=== PATIENT | male | born 1980 | race American Indian/Alaskan Native ===

== ENCOUNTER 2022-01-19 12:06 | Inpatient (IN) | payer SELFPAY ==
[2022-01-19 12:51] LABS: Basophils % (Auto) 0.2 % (0.0-1.8); Eosinophils # (Auto) 0.2 K/mm3 (0.0-0.4); Eosinophils % (Auto) 1.8 % (0.0-4.3); Hematocrit 39.4 % (35.5-45.6); Hemoglobin 12.4 gm/dl (11.8-15.2); Lymphocytes % (Auto) 17.4 % (13.4-35.0); Mean Corpuscular HGB Conc 32 % (32-34); Monocytes # (Auto) 0.9 K/mm3 (0.0-0.8); Monocytes % (Auto) 7.7 % (0.0-7.3); Platelet Count 265 K/mm3 (140-440); Red Blood Count 5.66 M/mm3 (3.65-5.03); Red Cell Distribution Width 15.9 % (13.2-15.2)
[2022-01-19 12:52] LABS: Mean Corpuscular Volume 70 fl (84-94)
[2022-01-19 13:13] LABS: Bilirubin,Urine NEG (Negative); Blood,Urine MOD (Negative); Color,Urine Yellow (Yellow); Mucus,Urine 3+ /HPF; WBC,Urine > 182.0 /HPF (0.0-6.0)
[2022-01-19 13:15] LABS: Alanine Aminotransferase 10 units/L (7-56); Albumin 3.8 g/dL (3.9-5); BUN/Creatinine Ratio 14; Blood Urea Nitrogen 13 mg/dL (9-20); Calcium 8.4 mg/dL (8.4-10.2); Hemolysis Index 0
[2022-01-19] MEDS ORDERED: SODIUM CHLORIDE 0.9% 1000 ML 1,000 ML IV ONE (13:46)
[2022-01-19] MEDS ORDERED: MORPHINE 4 MG/1 ML INJ IV ONE (13:46)
[2022-01-19] MEDS ORDERED: ONDANSETRON 4 MG/2 ML INJ IV ONE (13:46)
[2022-01-19] MEDS ORDERED: cefTRIAXone/NS 1 GM/50 ML 1 GM/50 ML BAG IV ONE (13:46)
--- NOTE | 2022-01-19 15:03 | Cat Scan Report ---
CT ABDOMEN AND PELVIS WITH CONTRAST HISTORY: abd pain with n/v. COMPARISON: None. TECHNIQUE: CT images of the abdomen and pelvis were obtained following administration of intravenous contrast. All CT scans at this location are performed using CT dose reduction for ALARA by means of automated exposure control. CONTRAST: 100 ml of intravenous contrast administered. FINDINGS: Lungs/bones: Mild emphysematous changes are present in the lungs. Degenerative changes are present i n the spine with nothing acute. Abdomen/pelvis: The liver, gallbladder, spleen, pancreas, adrenals, left kidney, and proximal GI tra ct appear unremarkable. There is scarring in the lower to midpole the right kidney. There is colonic diverticulosis with abnormal wall thickening and inflammatory changes involving the mid sigmoid colon. There is an adjacent small abscess which abuts the dome of the bladder and also co mmunicates with the radius. The abscess measures roughly 3 cm in maximal dimension on image 158 but a ir and debris also seen tracking along the urachus in the midline ventrally on images 148-158. No pelvic free fluid. The appendix is normal. IMPRESSION: 1. Mid sigmoid diverticulitis with adjacent small abscess which communicates with the urachus. No sig nificant free fluid or free air in the abdomen. This appears to be contained. Signer Name: Wilmer Boothe MD Signed: 01/19/2022 2:58 PM Workstation Name: [id number]
[2022-01-19] MEDS ORDERED: PIPERACIL/TAZOBACTA 4.5/NS 100 4.5 GM/100 ML VIAL IV ONE (15:08)
--- NOTE | 2022-01-19 15:13 | Emergency Department Report ---
ED Abdominal Pain HPI - General Chief Complaint: Abdominal Pain Stated Complaint: STOMACH PAIN Time Seen by Provider: 01/19/22 13:17 Source: patient Mode of arrival: Ambulatory Limitations: No Limitations - History of Present Illness Initial Comments: This is a 41-year-old male nontoxic, well nourished in appearance, no acute signs of distress presents to the ED with c/o of nausea and vomiting and abdominal pain several days. Patient describes vomiting as food content and yellow gastric acid. Patient describes abdominal pain as cramping and aching with level of 8/10 worsen to the lower abdomen area. Patient denies any urinary symptoms. Patient denies any penile discharge. Patient denies chest pain, short of breath, fever, hemoptysis, blood in stool, chills, headache, stiff neck, numbness or tingling. Patient denies any diarrhea or constipation. Denies any blood in stool. Patient denies any recent travels. Patient stated allergies to shellfish. MD Complaint: abdominal pain -: days(s) Location: LLQ, RLQ Radiation: none Migration to: no migration Severity: mild Severity scale (0 -10): 8 Quality: cramping, aching Improves With: nothing Worsens With: nothing Associated Symptoms: nausea, vomiting. denies: diarrhea, fever, chills, constipation, dysuria, hematemesis, hematochezia, melena, hematuria, anorexia, syncope - Related Data Allergies Allergy/AdvReac Type Severity Reaction Status Date / Time shellfish derived Allergy Rash Verified 01/19/22 12:18 ED Review of Systems ROS: Stated complaint: STOMACH PAIN Other details as noted in HPI Comment: All other systems reviewed and negative Constitutional: denies: chills, fever Eyes: denies: eye pain, eye discharge, vision change ENT: denies: ear pain, throat pain Respiratory: denies: cough, shortness of breath, wheezing Cardiovascular: denies: chest pain, palpitations Endocrine: no symptoms reported Gastrointestinal: abdominal pain, nausea, vomiting. denies: diarrhea, constipation, hematemesis, melena, hematochezia Genitourinary: denies: urgency, dysuria Musculoskeletal: denies: back pain, joint swelling, arthralgia Skin: denies: rash, lesions Neurological: denies: headache, weakness, paresthesias Psychiatric: denies: anxiety, depression Hematological/Lymphatic: denies: easy bleeding, easy bruising ED Past Medical Hx - Past Medical History Previous Medical History?: Yes Additional medical history: Mass on right kidney - Surgical History Past Surgical History?: Yes Additional Surgical History: Right kidney mass ED Physical Exam - General Limitations: No Limitations General appearance: alert, in no apparent distress - Head Head exam: Present: atraumatic, normocephalic - Eye Eye exam: Present: normal appearance - Neck Neck exam: Present: normal inspection, full ROM. Absent: lymphadenopathy - Respiratory Respiratory exam: Present: normal lung sounds bilaterally. Absent: respiratory distress, wheezes, rales, rhonchi, stridor, chest wall tenderness, accessory muscle use, decreased breath sounds, prolonged expiratory - Cardiovascular Cardiovascular Exam: Present: regular rate, normal rhythm, normal heart sounds. Absent: bradycardia, tachycardia, irregular rhythm, systolic murmur, diastolic murmur, rubs, gallop - GI/Abdominal GI/Abdominal exam: Present: soft, tenderness (diffuse), normal bowel sounds. Absent: distended, guarding, rebound, rigid, diminished bowel sounds - Extremities Exam Extremities exam: Present: full ROM - Back Exam Back exam: Present: normal inspection, full ROM. Absent: tenderness, CVA tenderness (R), CVA tenderness (L), muscle spasm, paraspinal tenderness, vertebral tenderness, rash noted - Neurological Exam Neurological exam: Present: alert, oriented X3, normal gait - Psychiatric Psychiatric exam: Present: normal affect, normal mood - Skin Skin exam: Present: warm, dry, intact, normal color. Absent: rash ED Course Vital Signs 01/19/22 01/19/22 12:18 14:12 Temperature 98.6 F Pulse Rate 68 46 L Respiratory 20 18 Rate Blood Pressure 136/75 [Left] Blood Pressure 141/96 [Right] O2 Sat by Pulse 99 99 Oximetry - Reevaluation(s) Reevaluation #1: 01/19/22 15:12 Patient is speaking in full sentences with no signs of distress noted. - Consultations Consultation #1: 01/19/22 15:11 Patient has been consulted with Dr. Velásquez about patient history, physical exam, and labs/imaging results and agrees to ED plan of care and admission. Consultation #2: 01/19/22 15:[address] Robles (general surgery) and awaiting for call back. Consultation #3: 01/19/22 15:30 Patient has been consulted with Dr. Robles (general surgery) about patient history, physical exam, and labs/imaging results and agrees to the ED plan of care and patient to be admitted with hospitalist at this time. 01/19/22 15:55 Patient has been consulted with Dr. Rosa about patient history, physical exam, and labs/imaging results and accepts patient to services. ED Medical Decision Making - Lab Data Result diagrams: 01/19/22 12:36 01/19/22 12:36 Lab Results 01/19/22 01/19/22 01/19/22 Range/Units 12:36 12:36 12:36 WBC 11.7 H (4.5-11.0) K/mm3 RBC 5.66 H (3.65-5.03) M/mm3 Hgb 12.4 (11.8-15.2) gm/dl Hct 39.4 (35.5-45.6) % MCV 70 L (84-94) fl MCH 22 L (28-32) pg MCHC 32 (32-34) % RDW 15.9 H (13.2-15.2) % Plt Count 265 (140-440) K/mm3 Lymph % (Auto) 17.4 (13.4-35.0) % Marion % (Auto) 7.7 H (0.0-7.3) % Eos % (Auto) 1.8 (0.0-4.3) % Baso % (Auto) 0.2 (0.0-1.8) % Lymph # (Auto) 2.0 (1.2-5.4) K/mm3 Marion # (Auto) 0.9 H (0.0-0.8) K/mm3 Eos # (Auto) 0.2 (0.0-0.4) K/mm3 Baso # (Auto) 0.0 (0.0-0.1) K/mm3 Seg Neutrophils % 72.9 H (40.0-70.0) % Seg Neutrophils # 8.6 H (1.8-7.7) K/mm3 Sodium 142 (137-145) mmol/L Potassium 4.5 (3.6-5.0) mmol/L Chloride 107.4 H (98-107) mmol/L Carbon Dioxide 27 (22-30) mmol/L Anion Gap 12 mmol/L BUN 13 (9-20) mg/dL Creatinine 0.9 (0.8-1.3) mg/dL Estimated GFR > 60 ml/min BUN/Creatinine Ratio 14 % Glucose 91 (75-100) mg/dL Calcium 8.4 (8.4-10.2) mg/dL Total Bilirubin 0.20 (0.1-1.2) mg/dL AST 14 (5-40) units/L ALT 10 (7-56) units/L Alkaline Phosphatase 65 (35-129) units/L Total Protein 7.2 (6.3-8.2) g/dL Albumin 3.8 L (3.9-5) g/dL Albumin/Globulin Ratio 1.1 % Lipase 102 H (13-60) units/L Urine Color (Yellow) Urine Turbidity (Clear) Urine pH (5.0-7.0) Ur Specific Caldwell (1.003-1.030) Urine Protein (Negative) mg/dL Urine Glucose (UA) (Negative) mg/dL Urine Ketones (Negative) mg/dL Urine Blood (Negative) Urine Nitrite (Negative) Urine Bilirubin (Negative) Urine Urobilinogen (<2.0) mg/dL Ur Leukocyte Esterase (Negative) Urine WBC (Auto) (0.0-6.0) /HPF Urine RBC (Auto) (0.0-6.0) /HPF Urine Mucus /HPF Urine Yeast (Budding) /HPF 01/19/22 Range/Units Unknown WBC (4.5-11.0) K/mm3 RBC (3.65-5.03) M/mm3 Hgb (11.8-15.2) gm/dl Hct (35.5-45.6) % MCV (84-94) fl MCH (28-32) pg MCHC (32-34) % RDW (13.2-15.2) % Plt Count (140-440) K/mm3 Lymph % (Auto) (13.4-35.0) % Marion % (Auto) (0.0-7.3) % Eos % (Auto) (0.0-4.3) % Baso % (Auto) (0.0-1.8) % Lymph # (Auto) (1.2-5.4) K/mm3 Marion # (Auto) (0.0-0.8) K/mm3 Eos # (Auto) (0.0-0.4) K/mm3 Baso # (Auto) (0.0-0.1) K/mm3 Seg Neutrophils % (40.0-70.0) % Seg Neutrophils # (1.8-7.7) K/mm3 Sodium (137-145) mmol/L Potassium (3.6-5.0) mmol/L Chloride (98-107) mmol/L Carbon Dioxide (22-30) mmol/L Anion Gap mmol/L BUN (9-20) mg/dL Creatinine (0.8-1.3) mg/dL Estimated GFR ml/min BUN/Creatinine Ratio % Glucose (75-100) mg/dL Calcium (8.4-10.2) mg/dL Total Bilirubin (0.1-1.2) mg/dL AST (5-40) units/L ALT (7-56) units/L Alkaline Phosphatase (35-129) units/L Total Protein (6.3-8.2) g/dL Albumin (3.9-5) g/dL Albumin/Globulin Ratio % Lipase (13-60) units/L Urine Color Yellow (Yellow) Urine Turbidity Slightly-cloudy (Clear) Urine pH 5.0 (5.0-7.0) Ur Specific Caldwell 1.029 (1.003-1.030) Urine Protein 100 mg/dl (Negative) mg/dL Urine Glucose (UA) Neg (Negative) mg/dL Urine Ketones Neg (Negative) mg/dL Urine Blood Mod (Negative) Urine Nitrite Neg (Negative) Urine Bilirubin Neg (Negative) Urine Urobilinogen 4.0 (<2.0) mg/dL Ur Leukocyte Esterase Lg (Negative) Urine WBC (Auto) > 182.0 H (0.0-6.0) /HPF Urine RBC (Auto) 21.0 (0.0-6.0) /HPF Urine Mucus 3+ /HPF Urine Yeast (Budding) 1+ /HPF - Radiology Data [facility] [address] [place] [address] Cat Scan Report Signed Patient: CARLOS LUJAN MR#: [id number] : 1980 Acct:[id number] Age/Sex: 41 / M ADM Date: 01/19/22 Loc: ED Attending Dr: Ordering Physician: KARTIK STOLL NP Date of Service: 01/19/22 Procedure(s): CT abdomen pelvis w con Accession Number(s): [id number] cc: KARTIK STOLL NP CT ABDOMEN AND PELVIS WITH CONTRAST HISTORY: abd pain with n/v. COMPARISON: None. TECHNIQUE: CT images of the abdomen and pelvis were obtained following administration of intravenous contrast. All CT scans at this location are performed using CT dose reduction for ALARA by means of automated exposure control. CONTRAST: 100 ml of intravenous contrast administered. FINDINGS: Lungs/bones: Mild emphysematous changes are present in the lungs. Degenerative changes are present in the spine with nothing acute. Abdomen/pelvis: The liver, gallbladder, spleen, pancreas, adrenals, left kidney, and proximal GI tract appear unremarkable. There is scarring in the lower to midpole the right kidney. There is colonic diverticulosis with abnormal wall thickening and inflammatory changes involving the mid sigmoid colon. There is an adjacent small abscess which abuts the dome of the bladder and also communicates with the radius. The abscess measures roughly 3 cm in maximal dimension on image 158 but air and debris also seen tracking along the urachus in the midline ventrally on images 148- 158. No pelvic free fluid. The appendix is normal. IMPRESSION: 1. Mid sigmoid diverticulitis with adjacent small abscess which communicates with the urachus. No significant free fluid or free air in the abdomen. This appears to be contained. Signer Name: Wilmer Boothe MD Signed: 01/19/2022 2:58 PM Workstation Name: [id number] Transcribed By: KATIE Dictated By: Wilmer Boothe MD Electronically Authenticated By: Wilmer Boothe MD Signed Date/Time: 01/19/22 1458 DD/ 55 TD/TT: - Medical Decision Making 42-year-old male that presents with diverticulitis with abscess. Patient is stable and was examined by me. Patient received IV antibiotics. Patient is notified of the imaging results with no questions noted by the patient. Patient admitted with hospitalist at this time. At time of admission, the patient does not seem toxic or ill in appearance. No acute signs of distress noted. Patient agrees to admission treatment plan of care. No further questions noted by the patient. Critical care attestation.: If time is entered above; I have spent that time in minutes in the direct care of this critically ill patient, excluding procedure time. ED Disposition Clinical Impression: Diverticulitis, Intra-abdominal abscess Nausea & vomiting Qualifiers: Vomiting type: unspecified Qualified Code(s): R11.2 - Nausea with vomiting, unspecified Abdominal pain Qualifiers: Abdominal location: lower abdomen, unspecified Qualified Code(s): R10.30 - Lower abdominal pain, unspecified UTI (urinary tract infection) Qualifiers: Urinary tract infection type: acute cystitis Hematuria presence: with hematuria Qualified Code(s): N30.01 - Acute cystitis with hematuria Disposition: ADMITTED INPATIENT Is pt being admited?: Yes Condition: Stable Time of Disposition: 15:57
[2022-01-19] MEDS ORDERED: ACETAMINOPHEN 325 MG TAB PO PRN (19:54)
[2022-01-19] MEDS ORDERED: ONDANSETRON 4 MG/2 ML INJ IV PRN (19:54)
[2022-01-19] MEDS ORDERED: HYDROmorphone 0.5 MG/0.5 ML INJ IV PRN (19:54)
--- NOTE | 2022-01-19 20:04 | History and Physical Report ---
History of Present Illness Date of examination: 01/19/22 Date of admission: 01/19/2022 Chief complaint: Left lower quadrant and right lower quadrant pain for 2 to 3 days History of present illness: 41-year-old -Martiniquais male with past medical history of right kidney renal cell carcinoma and s/p right nephrectomy with history of diverticulitis comes in for right lower quadrant pain and left lower quadrant pain. Associated with nausea and vomiting. Abdominal pain for 3 days. Pain is about 10 on a scale of 1-10 and intermittent in nature. Food is an exacerbating factor. No recent travel. No fever or chills. - Past Medical History Previous Medical History?: Yes Additional medical history: Mass on right kidney - Surgical History Past Surgical History?: Yes Additional Surgical History: Right kidney mass family history Htn social history no smoking Review of Systems ROS: Stated complaint: STOMACH PAIN Other details as noted in HPI Comment: All other systems reviewed and negative Constitutional: denies: chills, fever Eyes: denies: eye pain, eye discharge, vision change ENT: denies: ear pain, throat pain Respiratory: denies: cough, shortness of breath, wheezing Cardiovascular: denies: chest pain, palpitations Endocrine: no symptoms reported Gastrointestinal: abdominal pain, nausea, vomiting. denies: diarrhea, cons tipation, hematemesis, melena, hematochezia Genitourinary: denies: urgency, dysuria Musculoskeletal: denies: back pain, joint swelling, arthralgia Skin: denies: rash, lesions Neurological: denies: headache, weakness, paresthesias Psychiatric: denies: anxiety, depression Hematological/Lymphatic: denies: easy bleeding, easy bruising Medications and Allergies Allergies Allergy/AdvReac Type Severity Reaction Status Date / Time shellfish derived Allergy Rash Verified 01/19/22 12:18 Exam - Constitutional Vitals: Temp Pulse Resp BP Pulse Ox 98.6 F 46 L 18 136/75 99 01/19/22 12:18 01/19/22 14:12 01/19/22 14:12 01/19/22 14:12 01/19/22 14:12 General appearance: Present: mild distress, well-nourished - EENT Eyes: Present: PERRL ENT: hearing intact, clear oral mucosa - Neck Neck: Present: supple, normal ROM - Respiratory Respiratory effort: normal Respiratory: bilateral: CTA - Cardiovascular Heart rate: 78 Rhythm: regular Heart Sounds: Present: S1 & S2. Absent: rub, click - Extremities Extremities: pulses symmetrical, No edema Peripheral Pulses: within normal limits - Abdominal General gastrointestinal: Present: soft, tender, non-distended, normal bowel sounds Localized gastrointestinal: tender: RLQ, LLQ, guarding: RLQ, LLQ Male genitourinary: Present: normal - Integumentary Integumentary: Present: clear, warm, dry - Musculoskeletal Musculoskeletal: gait normal, strength equal bilaterally - Psychiatric Psychiatric: appropriate mood/affect, intact judgment & insight - Neurologic Neurologic: CNII-XII intact, moves all extremities Results - Labs CBC & Chem 7: 01/20/22 04:38 01/20/22 04:38 Labs: Laboratory Last Values WBC 11.7 K/mm3 (4.5-11.0) H 01/19/22 12:36 RBC 5.66 M/mm3 (3.65-5.03) H 01/19/22 12:36 Hgb 12.4 gm/dl (11.8-15.2) 01/19/22 12:36 Hct 39.4 % (35.5-45.6) 01/19/22 12:36 MCV 70 fl (84-94) L 01/19/22 12:36 MCH 22 pg (28-32) L 01/19/22 12:36 MCHC 32 % (32-34) 01/19/22 12:36 RDW 15.9 % (13.2-15.2) H 01/19/22 12:36 Plt Count 265 K/mm3 (140-440) 01/19/22 12:36 Lymph % (Auto) 17.4 % (13.4-35.0) 01/19/22 12:36 Travis % (Auto) 7.7 % (0.0-7.3) H 01/19/22 12:36 Eos % (Auto) 1.8 % (0.0-4.3) 01/19/22 12:36 Baso % (Auto) 0.2 % (0.0-1.8) 01/19/22 12:36 Lymph # (Auto) 2.0 K/mm3 (1.2-5.4) 01/19/22 12:36 Travis # (Auto) 0.9 K/mm3 (0.0-0.8) H 01/19/22 12:36 Eos # (Auto) 0.2 K/mm3 (0.0-0.4) 01/19/22 12:36 Baso # (Auto) 0.0 K/mm3 (0.0-0.1) 01/19/22 12:36 Seg Neutrophils % 72.9 % (40.0-70.0) H 01/19/22 12:36 Seg Neutrophils # 8.6 K/mm3 (1.8-7.7) H 01/19/22 12:36 Sodium 142 mmol/L (137-145) 01/19/22 12:36 Potassium 4.5 mmol/L (3.6-5.0) 01/19/22 12:36 Chloride 107.4 mmol/L (98-107) H 01/19/22 12:36 Carbon Dioxide 27 mmol/L (22-30) 01/19/22 12:36 Anion Gap 12 mmol/L 01/19/22 12:36 BUN 13 mg/dL (9-20) 01/19/22 12:36 Creatinine 0.9 mg/dL (0.8-1.3) 01/19/22 12:36 Estimated GFR > 60 ml/min 01/19/22 12:36 BUN/Creatinine Ratio 14 % 01/19/22 12:36 Glucose 91 mg/dL (75-100) 01/19/22 12:36 Calcium 8.4 mg/dL (8.4-10.2) 01/19/22 12:36 Total Bilirubin 0.20 mg/dL (0.1-1.2) 01/19/22 12:36 AST 14 units/L (5-40) 01/19/22 12:36 ALT 10 units/L (7-56) 01/19/22 12:36 Alkaline Phosphatase 65 units/L (35-129) 01/19/22 12:36 Total Protein 7.2 g/dL (6.3-8.2) 01/19/22 12:36 Albumin 3.8 g/dL (3.9-5) L 01/19/22 12:36 Albumin/Globulin Ratio 1.1 % 01/19/22 12:36 Lipase 102 units/L (13-60) H 01/19/22 12:36 Urine Color Yellow (Yellow) 01/19/22 Unknown Urine Turbidity Slightly-cloudy (Clear) 01/19/22 Unknown Urine pH 5.0 (5.0-7.0) 01/19/22 Unknown Ur Specific Scott 1.029 (1.003-1.030) 01/19/22 Unknown Urine Protein 100 mg/dl mg/dL (Negative) 01/19/22 Unknown Urine Glucose (UA) Neg mg/dL (Negative) 01/19/22 Unknown Urine Ketones Neg mg/dL (Negative) 01/19/22 Unknown Urine Blood Mod (Negative) 01/19/22 Unknown Urine Nitrite Neg (Negative) 01/19/22 Unknown Urine Bilirubin Neg (Negative) 01/19/22 Unknown Urine Urobilinogen 4.0 mg/dL (<2.0) 01/19/22 Unknown Ur Leukocyte Esterase Lg (Negative) 01/19/22 Unknown Urine WBC (Auto) > 182.0 /HPF (0.0-6.0) H 01/19/22 Unknown Urine RBC (Auto) 21.0 /HPF (0.0-6.0) 01/19/22 Unknown Urine Mucus 3+ /HPF 01/19/22 Unknown Urine Yeast (Budding) 1+ /HPF 01/19/22 Unknown Short CBC 01/19/22 01/20/22 Range/Units 12:36 04:38 WBC 11.7 H 10.1 (4.5-11.0) K/mm3 Hgb 12.4 12.0 (11.8-15.2) gm/dl Hct 39.4 36.5 (35.5-45.6) % Plt Count 265 245 (140-440) K/mm3 BMP 01/19/22 01/20/22 12:36 04:38 Sodium 142 137 Potassium 4.5 3.8 Chloride 107.4 H 103.8 Carbon Dioxide 27 25 BUN 13 8 L Creatinine 0.9 0.8 Glucose 91 77 Calcium 8.4 8.5 Liver Function 01/19/22 01/20/22 Range/Units 12:36 04:38 Total Bilirubin 0.20 0.60 (0.1-1.2) mg/dL AST 14 12 (5-40) units/L ALT 10 10 (7-56) units/L Alkaline Phosphatase 65 56 (35-129) units/L Albumin 3.8 L 3.5 L (3.9-5) g/dL Urine 01/19/22 Range/Units Unknown Urine Color Yellow (Yellow) Urine pH 5.0 (5.0-7.0) Ur Specific Scott 1.029 (1.003-1.030) Urine Protein 100 mg/dl (Negative) mg/dL Urine Glucose (UA) Neg (Negative) mg/dL - Imaging and Cardiology CT scan - abdomen: report reviewed Imaging and Cardiology: Abdomen/pelvis CT Mild sigmoid diverticulitis with adjacent small extremities with clear liquids. No significant free fluid and free air in the abdomen this appears to be contained. Assessment and Plan Advance Directives: Yes (Full code) VTE prophylaxis?: Chemical Plan of care discussed with patient/family: Yes - Patient Problems (1) SIRS (systemic inflammatory response syndrome) Current Visit: Yes Status: Acute Plan to address problem: Elevated white count IV antibiotics for now (2) Acute diverticulitis Current Visit: Yes Status: Acute Plan to address problem: Involving the sigmoid with small contained abscess Can be treated conservatively IV antibiotics with Zosyn Surgery consult requested IV fluids Pain control N.p.o. (3) UTI (urinary tract infection) Current Visit: Yes Status: Acute Qualifiers: Urinary tract infection type: acute cystitis Plan to address problem: Patient is on Zosyn for diverticulitis Should cover for the urinary tract infection Check urine cultures (4) DVT prophylaxis Current Visit: Yes Status: Acute Plan to address problem: Heparin and GI prophylaxis (5) Advance care planning Current Visit: Yes Status: Acute Plan to address problem: Disease education conducted, care plan discussed, diagnosis discussed, prognosis discussed. Patient is full code. Patient acknowledges understanding and agreement with care plan. +30 minutes.
--- NOTE | 2022-01-19 20:39 | Consultation ---
History of Present Illness Consult date: 01/19/22 Reason for consult: abdominal pain - History of present illness History of present illness: 41 yo male with 3 day h/o BLQ pain associated with nausea and vomiting. + H/o diverticulitis. No prior colonoscopy. Past History Past Medical History: other (Right renal adenocarcinoma) Past Surgical History: Other (Right nephrectomy) Medications and Allergies Allergies Allergy/AdvReac Type Severity Reaction Status Date / Time shellfish derived Allergy Rash Verified 01/19/22 12:18 Home Medications Medication Instructions Recorded Confirmed Last Taken Type No Known Home Medications [No 01/20/22 01/20/22 Unknown History Reported Home Medications] Active Meds: Active Medications Acetaminophen (Acetaminophen 325 Mg Tab) 650 mg PO Q4H PRN PRN Reason: Pain MILD(1-3)/Fever >100.5/CHAN Famotidine (Famotidine 20 Mg/2 Ml Inj) 20 mg IV BID JIM Heparin Sodium (Porcine) (Heparin 5,000 Unit/1 Ml Vial) 5,000 unit SUB-Q Q12HR JIM Hydromorphone HCl (Hydromorphone 0.5 Mg/0.5 Ml Inj) 1 mg IV Q3H PRN PRN Reason: Pain , Severe (7-10) Sodium Chloride (Nacl 0.9% 1000 Ml) 1,000 mls @ 75 mls/hr IV DIRECT JIM Piperacillin Sod/Tazobactam Sod (Zosyn/Ns 4.5gm/100ml) 4.5 gm in 100 mls @ 200 mls/hr IV Q8HR JIM; Protocol Morphine Sulfate (Morphine 2 Mg/1 Ml Inj) 2 mg IV Q4H PRN PRN Reason: Pain, Moderate (4-6) Ondansetron HCl (Ondansetron 4 Mg/2 Ml Inj) 4 mg IV Q8H PRN PRN Reason: Nausea And Vomiting Sodium Chloride (Sodium Chloride 0.9% 10 Ml Flush Syringe) 10 ml IV BID JIM Sodium Chloride (Sodium Chloride 0.9% 10 Ml Flush Syringe) 10 ml IV PRN PRN PRN Reason: LINE FLUSH Review of Systems All systems: negative (nne) Exam Vital Signs Temp Pulse Resp BP Pulse Ox 98.6 F 68 20 141/96 99 01/19/22 12:18 01/19/22 12:18 01/19/22 12:18 01/19/22 12:18 01/19/22 12:18 - General physical appearance Positive: well developed, well nourished, no distress - Eyes Positive: PERRL, normal occular movement - ENT Positive: normal pinna, normal nares, normal mucosa, no hearing loss, no congestion - Neck Positive: no masses, no bruits, trachea midline, no venous distension - Respiratory Positive: normal expansion, normal respiratory effort, clear to auscultation - Cardiovascular Rhythm: regular Heart Sounds: Present: S1 & S2. Absent: rub, click - Extremities Extremities: no ischemia, pulses symmetrical, No edema - Breasts Breasts: normal, no mass, no skin changes - Abdomen Abdomen: Present: soft, tender (Mild TTP in the LLQ.), bowel sounds normal. Absent: distended, masses, rebound, guarding Hernia: none - Genitourinary Male Genitourinary: normal Female Genitourinary: normal - Integumentary no rash, no growths, no abnormal pigmentation - Neurologic Neurologic: alert and oriented to time, place and person, motor strength and sensation are grossly intact - Musculoskeletal normal gait, normal posture - Psychiatric Psychiatric: appropriate mood/affect, intact judgment & insight Results - Labs 01/20/22 04:38 01/20/22 04:38 Abnormal lab results 01/19/22 01/19/22 01/19/22 Range/Units 12:36 12:36 12:36 WBC 11.7 H (4.5-11.0) K/mm3 RBC 5.66 H (3.65-5.03) M/mm3 MCV 70 L (84-94) fl MCH 22 L (28-32) pg RDW 15.9 H (13.2-15.2) % [place] % (Auto) 7.7 H (0.0-7.3) % [place] # (Auto) 0.9 H (0.0-0.8) K/mm3 Seg Neutrophils % 72.9 H (40.0-70.0) % Seg Neutrophils # 8.6 H (1.8-7.7) K/mm3 Chloride 107.4 H (98-107) mmol/L Albumin 3.8 L (3.9-5) g/dL Lipase 102 H (13-60) units/L Urine WBC (Auto) (0.0-6.0) /HPF 01/19/22 Range/Units Unknown WBC (4.5-11.0) K/mm3 RBC (3.65-5.03) M/mm3 MCV (84-94) fl MCH (28-32) pg RDW (13.2-15.2) % [place] % (Auto) (0.0-7.3) % [place] # (Auto) (0.0-0.8) K/mm3 Seg Neutrophils % (40.0-70.0) % Seg Neutrophils # (1.8-7.7) K/mm3 Chloride (98-107) mmol/L Albumin (3.9-5) g/dL Lipase (13-60) units/L Urine WBC (Auto) > 182.0 H (0.0-6.0) /HPF Diabetes panel 01/19/22 Range/Units 12:36 Sodium 142 (137-145) mmol/L Potassium 4.5 (3.6-5.0) mmol/L Chloride 107.4 H (98-107) mmol/L Carbon Dioxide 27 (22-30) mmol/L BUN 13 (9-20) mg/dL Creatinine 0.9 (0.8-1.3) mg/dL Glucose 91 (75-100) mg/dL Calcium 8.4 (8.4-10.2) mg/dL AST 14 (5-40) units/L ALT 10 (7-56) units/L Alkaline Phosphatase 65 (35-129) units/L Total Protein 7.2 (6.3-8.2) g/dL Albumin 3.8 L (3.9-5) g/dL Calcium panel 01/19/22 Range/Units 12:36 Calcium 8.4 (8.4-10.2) mg/dL Albumin 3.8 L (3.9-5) g/dL Pituitary panel 01/19/22 Range/Units 12:36 Sodium 142 (137-145) mmol/L Potassium 4.5 (3.6-5.0) mmol/L Chloride 107.4 H (98-107) mmol/L Carbon Dioxide 27 (22-30) mmol/L BUN 13 (9-20) mg/dL Creatinine 0.9 (0.8-1.3) mg/dL Glucose 91 (75-100) mg/dL Calcium 8.4 (8.4-10.2) mg/dL Adrenal panel 01/19/22 Range/Units 12:36 Sodium 142 (137-145) mmol/L Potassium 4.5 (3.6-5.0) mmol/L Chloride 107.4 H (98-107) mmol/L Carbon Dioxide 27 (22-30) mmol/L BUN 13 (9-20) mg/dL Creatinine 0.9 (0.8-1.3) mg/dL Glucose 91 (75-100) mg/dL Calcium 8.4 (8.4-10.2) mg/dL Total Bilirubin 0.20 (0.1-1.2) mg/dL AST 14 (5-40) units/L ALT 10 (7-56) units/L Alkaline Phosphatase 65 (35-129) units/L Total Protein 7.2 (6.3-8.2) g/dL Albumin 3.8 L (3.9-5) g/dL - Imaging CT scan - abdomen: report reviewed CT scan - pelvis: report reviewed Assessment and Plan - Patient Problems (1) Diverticulitis Current Visit: Yes Status: Acute Plan to address problem: 1) NPO 2) IV Zosyn 3) Consult IR for possible drainage of abscess
[2022-01-19] MEDS: PIPERACIL/TAZOBACTA 4.5/NS 100 4.5 GM/100 ML VIAL IV SCH (22:05)
[2022-01-19] MEDS: SODIUM CHLORIDE 0.9% 1000 ML 1,000 ML IV SCH (22:05)
[2022-01-19] MEDS: HEPARIN 5,000 UNIT/1 ML VIAL SUB-Q SCH (22:08)
[2022-01-19] MEDS: FAMOTIDINE 20 MG/2 ML INJ IV SCH (22:10)
[2022-01-19] MEDS: MORPHINE 2 MG/1 ML INJ IV PRN (22:11)
[2022-01-20] MEDS: MORPHINE 2 MG/1 ML INJ IV PRN ×2 (05:00→20:54)
[2022-01-20] MEDS: PIPERACIL/TAZOBACTA 4.5/NS 100 4.5 GM/100 ML VIAL IV SCH ×4 (05:30→21:07)
[2022-01-20 05:39] LABS: Basophils % (Auto) 0.3 % (0.0-1.8); Eosinophils # (Auto) 0.2 K/mm3 (0.0-0.4); Eosinophils % (Auto) 2.2 % (0.0-4.3); Hematocrit 36.5 % (35.5-45.6); Lymphocytes # (Auto) 1.8 K/mm3 (1.2-5.4); Mean Corpuscular HGB Conc 33 % (32-34); Monocytes # (Auto) 0.8 K/mm3 (0.0-0.8); Monocytes % (Auto) 8.1 % (0.0-7.3); Platelet Count 245 K/mm3 (140-440); Red Blood Count 5.24 M/mm3 (3.65-5.03); Red Cell Distribution Width 15.7 % (13.2-15.2)
[2022-01-20 05:46] LABS: Mean Corpuscular Volume 70 fl (84-94)
[2022-01-20 06:07] LABS: Alanine Aminotransferase 10 units/L (7-56); Albumin 3.5 g/dL (3.9-5); BUN/Creatinine Ratio 10; Blood Urea Nitrogen 8 mg/dL (9-20); Calcium 8.5 mg/dL (8.4-10.2); Hemolysis Index 3
--- NOTE | 2022-01-20 07:53 | Progress Note ---
Assessment and Plan Assessment and plan: History of present illness: 41-year-old -[place]ian male with past medical history of right kidney renal cell carcinoma and s/p right nephrectomy with history of diverticulitis comes in for right lower quadrant pain and left lower quadrant pain. Associated with nausea and vomiting. Abdominal pain for 3 days. Pain is about 10 on a scale of 1-10 and intermittent in nature. Food is an exacerbating factor. No recent travel. No fever or chills. Assessment and Plan: #Sepsis POA -Secondary to diverticulitis/UTI, leukocytosis (11.7K) noted,tachypneic - management of diverticulitis as below. #Acute diverticulitis -Abdomen/pelvis CT: Mild sigmoid diverticulitis with adjacent small extremities with clear liquids. No significant free fluid and free air in the abdomen this appears to be contained. -Involving the sigmoid with small contained abscess -Can be treated conservatively for now, if patient worsens, may need surgical drainage -IV antibiotics with Zosyn -Surgery consult requested, will await input -IV fluids -Pain control -N.p.o. #Urinary tract infection -leukocytosis (11.7K), Urine WBC 182. -zosyn IV for coverage. -follow culture data #History of RCC s/p rt nephrectomy - noted # Obesity - BMI 30 - Counseled patient on the importance of weight loss, incorporating exercise, and dietary changes (lean meats, fresh fruits and vegetables, and water intake). Patient expresses understanding. - Time: +15 min #Advance care planning Disease education conducted, care plan discussed, diagnoses discussed, prognosis discussed, patient is full code, patient acknowledges understanding and agree with care plan, discussed about patient clinical course and answered all questions to satisfaction. +30 minutes. +30 minutes. Dispo: Conservative management at this time given mild symptoms and CT findings as well as response to fluid/abx. Would recommend continued NPO, fluid/abx for next 24hrs and subsequent re-eval of symptomology. If no improvement noted, may require surgical/IR intervention. Will follow for Gen surgery input. History Interval history: Patient seen and evaluated at bedside encounter. States that his left lower quadrant is only mildly tender citing a pain scale of 3 out of 10. He has not had a bowel movement since yesterday. Of note patient states that over the last few days prior to admission he has been having intermittent dysuria and stated that he may have noted blood in his urine. I discussed the care plan with him today as well as his ultimate disposition. Hospitalist Physical - Physical exam Narrative exam: Physical Exam: VITAL SIGNS: Reviewed. GENERAL: The patient appears normally developed, Vital signs as documented. HEAD: No signs of head trauma. EYES: Pupils are equal. Extraocular motions intact. EARS: Hearing grossly intact. MOUTH: Oropharynx is normal. NECK: No adenopathy, no JVD. CHEST: Chest with clear breath sounds bilaterally. No wheezes, rales, or rhonchi. CARDIAC: Regular rate and rhythm. S1 and S2, without murmurs, gallops, or rubs. VASCULAR: No Edema. Peripheral pulses normal and equal in all extremities. ABDOMEN: Mild left lower quadrant tenderness to palpation MUSCULOSKELETAL: Good range of motion of all major joints. Extremities without clubbing, cyanosis or edema. NEUROLOGIC EXAM: Alert and oriented x 4. no focal sensory or strength deficits. PSYCHIATRIC: Mood normal. SKIN: detail exam as documented in skin assessment - Constitutional Vitals: Temp Pulse Resp BP Pulse Ox 98.4 F 47 L 16 140/84 98 01/19/22 22:13 01/19/22 22:13 01/20/22 00:11 01/19/22 22:13 01/20/22 00:11 General appearance: Present: mild distress, well-nourished Results - Labs CBC & Chem 7: 01/20/22 04:38 01/20/22 04:38 Labs: Laboratory Last Values WBC 10.1 K/mm3 (4.5-11.0) 01/20/22 04:38 RBC 5.24 M/mm3 (3.65-5.03) H 01/20/22 04:38 Hgb 12.0 gm/dl (11.8-15.2) 01/20/22 04:38 Hct 36.5 % (35.5-45.6) 01/20/22 04:38 MCV 70 fl (84-94) L 01/20/22 04:38 MCH 23 pg (28-32) L 01/20/22 04:38 MCHC 33 % (32-34) 01/20/22 04:38 RDW 15.7 % (13.2-15.2) H 01/20/22 04:38 Plt Count 245 K/mm3 (140-440) 01/20/22 04:38 Lymph % (Auto) 18.0 % (13.4-35.0) 01/20/22 04:38 [place] % (Auto) 8.1 % (0.0-7.3) H 01/20/22 04:38 Eos % (Auto) 2.2 % (0.0-4.3) 01/20/22 04:38 Baso % (Auto) 0.3 % (0.0-1.8) 01/20/22 04:38 Lymph # (Auto) 1.8 K/mm3 (1.2-5.4) 01/20/22 04:38 [place] # (Auto) 0.8 K/mm3 (0.0-0.8) 01/20/22 04:38 Eos # (Auto) 0.2 K/mm3 (0.0-0.4) 01/20/22 04:38 Baso # (Auto) 0.0 K/mm3 (0.0-0.1) 01/20/22 04:38 Seg Neutrophils % 71.4 % (40.0-70.0) H 01/20/22 04:38 Seg Neutrophils # 7.2 K/mm3 (1.8-7.7) 01/20/22 04:38 Sodium 137 mmol/L (137-145) 01/20/22 04:38 Potassium 3.8 mmol/L (3.6-5.0) 01/20/22 04:38 Chloride 103.8 mmol/L (98-107) 01/20/22 04:38 Carbon Dioxide 25 mmol/L (22-30) 01/20/22 04:38 Anion Gap 12 mmol/L 01/20/22 04:38 BUN 8 mg/dL (9-20) L 01/20/22 04:38 Creatinine 0.8 mg/dL (0.8-1.3) 01/20/22 04:38 Estimated GFR > 60 ml/min 01/20/22 04:38 BUN/Creatinine Ratio 10 % 01/20/22 04:38 Glucose 77 mg/dL (75-100) 01/20/22 04:38 Calcium 8.5 mg/dL (8.4-10.2) 01/20/22 04:38 Total Bilirubin 0.60 mg/dL (0.1-1.2) 01/20/22 04:38 AST 12 units/L (5-40) 01/20/22 04:38 ALT 10 units/L (7-56) 01/20/22 04:38 Alkaline Phosphatase 56 units/L (35-129) 01/20/22 04:38 Total Protein 6.8 g/dL (6.3-8.2) 01/20/22 04:38 Albumin 3.5 g/dL (3.9-5) L 01/20/22 04:38 Albumin/Globulin Ratio 1.1 % 01/20/22 04:38 Lipase 102 units/L (13-60) H 01/19/22 12:36 Urine Color Yellow (Yellow) 01/19/22 Unknown Urine Turbidity Slightly-cloudy (Clear) 01/19/22 Unknown Urine pH 5.0 (5.0-7.0) 01/19/22 Unknown Ur Specific [place] 1.029 (1.003-1.030) 01/19/22 Unknown Urine Protein 100 mg/dl mg/dL (Negative) 01/19/22 Unknown Urine Glucose (UA) Neg mg/dL (Negative) 01/19/22 Unknown Urine Ketones Neg mg/dL (Negative) 01/19/22 Unknown Urine Blood Mod (Negative) 01/19/22 Unknown Urine Nitrite Neg (Negative) 01/19/22 Unknown Urine Bilirubin Neg (Negative) 01/19/22 Unknown Urine Urobilinogen 4.0 mg/dL (<2.0) 01/19/22 Unknown Ur Leukocyte Esterase Lg (Negative) 01/19/22 Unknown Urine WBC (Auto) > 182.0 /HPF (0.0-6.0) H 01/19/22 Unknown Urine RBC (Auto) 21.0 /HPF (0.0-6.0) 01/19/22 Unknown Urine Mucus 3+ /HPF 01/19/22 Unknown Urine Yeast (Budding) 1+ /HPF 01/19/22 Unknown Bonilla/IV: Voiding Method Toilet Active Medications - Current Medications Current Medications: Generic Name Dose Route Start Last Admin Trade Name Freq PRN Reason Stop Dose Admin Acetaminophen 650 mg 01/19/22 19:54 Acetaminophen 325 Mg Tab PO Q4H PRN Pain MILD(1-3)/Fever >100.5/CHAN Famotidine 20 mg 01/19/22 22:00 01/19/22 22:10 Famotidine 20 Mg/2 Ml Inj IV 20 mg BID JIM Administration Heparin Sodium (Porcine) 5,000 unit 01/19/22 22:00 01/19/22 22:08 Heparin 5,000 Unit/1 Ml Vial SUB-Q 5,000 unit Q12HR JIM Administration Hydromorphone HCl 1 mg 01/19/22 19:54 Hydromorphone 0.5 Mg/0.5 Ml Inj IV Q3H PRN Pain , Severe (7-10) Sodium Chloride 1,000 mls @ 75 mls/hr 01/19/22 20:00 01/19/22 22:05 Nacl 0.9% 1000 Ml IV 75 mls/hr DIRECT JIM Administration Piperacillin Sod/Tazobactam Sod 4.5 gm in 100 mls @ 200 mls/hr 01/19/22 22:00 01/19/22 22:05 Zosyn/Ns 4.5gm/100ml IV 200 mls/hr Q8HR JIM Administration Protocol Morphine Sulfate 2 mg 01/19/22 19:54 01/20/22 05:00 Morphine 2 Mg/1 Ml Inj IV 2 mg Q4H PRN Administration Pain, Moderate (4-6) Ondansetron HCl 4 mg 01/19/22 19:54 01/19/22 22:10 Ondansetron 4 Mg/2 Ml Inj IV 4 mg Q8H PRN Administration Nausea And Vomiting Sodium Chloride 10 ml 01/19/22 22:00 01/19/22 22:11 Sodium Chloride 0.9% 10 Ml Flush Syringe IV 10 ml BID JIM Administration Sodium Chloride 10 ml 01/19/22 19:54 Sodium Chloride 0.9% 10 Ml Flush Syringe IV PRN PRN LINE FLUSH
[2022-01-20] MEDS: FAMOTIDINE 20 MG/2 ML INJ IV SCH ×3 (09:09→21:06)
[2022-01-20] MEDS: HEPARIN 5,000 UNIT/1 ML VIAL SUB-Q SCH ×3 (09:10→21:06)
[2022-01-20] MEDS: SODIUM CHLORIDE 0.9% 1000 ML 1,000 ML IV SCH (09:13)
--- NOTE | 2022-01-20 16:02 | Progress Note ---
Assessment and Plan - Patient Problems (1) Diverticulitis Current Visit: Yes Status: Acute Plan to address problem: 1) Continue IV Zosyn 2) CLD 3) Consult IR re possible percutaneous drainage. Subjective Date of service: 01/20/22 Patient Reports: Positive: no new complaints, feels better, pain is less Objective Vital Signs - 12hr 01/20/22 01/20/22 08:29 11:52 Temperature 98.2 F Pulse Rate 41 L Respiratory 18 18 Rate Blood Pressure 132/79 O2 Sat by Pulse 98 100 Oximetry - Abdomen PM_46_EXABD1 4, PM_46_EXABD1 6, PM_46_EXABD1 8 Hernia: none - Labs 01/20/22 04:38 01/20/22 04:38 Diabetes panel 01/20/22 Range/Units 04:38 Sodium 137 (137-145) mmol/L Potassium 3.8 (3.6-5.0) mmol/L Chloride 103.8 (98-107) mmol/L Carbon Dioxide 25 (22-30) mmol/L BUN 8 L (9-20) mg/dL Creatinine 0.8 (0.8-1.3) mg/dL Glucose 77 (75-100) mg/dL Calcium 8.5 (8.4-10.2) mg/dL AST 12 (5-40) units/L ALT 10 (7-56) units/L Alkaline Phosphatase 56 (35-129) units/L Total Protein 6.8 (6.3-8.2) g/dL Albumin 3.5 L (3.9-5) g/dL Calcium panel 01/20/22 Range/Units 04:38 Calcium 8.5 (8.4-10.2) mg/dL Albumin 3.5 L (3.9-5) g/dL Pituitary panel 01/20/22 Range/Units 04:38 Sodium 137 (137-145) mmol/L Potassium 3.8 (3.6-5.0) mmol/L Chloride 103.8 (98-107) mmol/L Carbon Dioxide 25 (22-30) mmol/L BUN 8 L (9-20) mg/dL Creatinine 0.8 (0.8-1.3) mg/dL Glucose 77 (75-100) mg/dL Calcium 8.5 (8.4-10.2) mg/dL Adrenal panel 01/20/22 Range/Units 04:38 Sodium 137 (137-145) mmol/L Potassium 3.8 (3.6-5.0) mmol/L Chloride 103.8 (98-107) mmol/L Carbon Dioxide 25 (22-30) mmol/L BUN 8 L (9-20) mg/dL Creatinine 0.8 (0.8-1.3) mg/dL Glucose 77 (75-100) mg/dL Calcium 8.5 (8.4-10.2) mg/dL Total Bilirubin 0.60 (0.1-1.2) mg/dL AST 12 (5-40) units/L ALT 10 (7-56) units/L Alkaline Phosphatase 56 (35-129) units/L Total Protein 6.8 (6.3-8.2) g/dL Albumin 3.5 L (3.9-5) g/dL
--- NOTE | 2022-01-20 16:12 | Event Note ---
Date: 01/20/22 41-year-old male with diverticular abscess with patent urachus. There is gas in the bladder. The diverticular abscess is on top of the bladder dome abutting the urachus. Gas in the bladder raises the possibility of colovesicular fistula given the sigmoid diverticular abscess Anatomy is unclear given this situation. Recommend Bonilla catheter placement with repeat CT scan tomorrow morning. Made n.p.o. in case patient requires drainage tomorrow.
[2022-01-21] MEDS: SODIUM CHLORIDE 0.9% 1000 ML 1,000 ML IV SCH (01:26)
[2022-01-21] MEDS: PIPERACIL/TAZOBACTA 4.5/NS 100 4.5 GM/100 ML VIAL IV SCH ×2 (05:20→14:21)
[2022-01-21 06:03] LABS: Basophils % (Auto) 0.4 % (0.0-1.8); Eosinophils # (Auto) 0.2 K/mm3 (0.0-0.4); Eosinophils % (Auto) 2.2 % (0.0-4.3); Hematocrit 38.8 % (35.5-45.6); Hemoglobin 12.4 gm/dl (11.8-15.2); Lymphocytes # (Auto) 1.9 K/mm3 (1.2-5.4); Lymphocytes % (Auto) 25.4 % (13.4-35.0); Mean Corpuscular HGB Conc 32 % (32-34); Monocytes # (Auto) 0.6 K/mm3 (0.0-0.8); Monocytes % (Auto) 7.9 % (0.0-7.3); Platelet Count 250 K/mm3 (140-440); Red Cell Distribution Width 15.7 % (13.2-15.2)
[2022-01-21 06:05] LABS: Mean Corpuscular Volume 69 fl (84-94)
[2022-01-21 06:21] LABS: BUN/Creatinine Ratio 10; Blood Urea Nitrogen 9 mg/dL (9-20); Calcium 8.6 mg/dL (8.4-10.2); Hemolysis Index 3
[2022-01-21] MEDS: FAMOTIDINE 20 MG/2 ML INJ IV SCH (09:38)
--- NOTE | 2022-01-21 11:12 | Cat Scan Report ---
CT ABDOMEN AND PELVIS WITH CONTRAST HISTORY: diverticulitis s/p metcalf, reassess abscess. COMPARISON: 01/19/2022 TECHNIQUE: Helical CT images of the abdomen and pelvis were obtained following administration of intr avenous contrast. Sagittal and coronal reformatted images were reviewed. All CT scans at this [facility] are performed using CT dose reduction for ALARA by means of automated exposure control. CONTRAST: Omnipaque 300 100 ml of intravenous contrast administered. FINDINGS: Abdomen/pelvis: Mild improvement is demonstrated in the previously described peridiverticular absces s just above the dome of the bladder. The collection demonstrates decreased internal fluid and has de creased from 3 cm to 2 cm in maximum dimension. Trace gas along the urachus is again noted and unchan ged. No new abscess is appreciated. Mild inflammatory changes in the sigmoid region have improved as well. The liver, biliary system, pancreas, spleen, adrenal glands, kidneys, vascular structures and bladder remain unremarkable. Lungs/bones: The lung bases remain clear. No acute bony abnormality. IMPRESSION: Mild improvement in the sigmoid diverticulitis and small peridiverticular abscess since 01/19/2022 as d escribed. Signer Name: Kostas Watson Jr, MD Signed: 01/21/2022 11:08 AM Workstation Name: [id number]
--- NOTE | 2022-01-21 11:41 | Progress Note ---
Assessment and Plan Assessment and plan: 41-year-old -[place]ian male with past medical history of right kidney renal cell carcinoma and s/p right nephrectomy with history of diverticulitis comes in for right lower quadrant pain and left lower quadrant pain. Associated with nausea and vomiting. Abdominal pain for 3 days. Pain is about 10 on a scale of 1-10 and intermittent in nature. Food is an exacerbating factor. No recent travel. No fever or chills. Sepsis POA -Secondary to diverticulitis/UTI, leukocytosis (11.7K) noted,tachypneic - management of diverticulitis as below. Acute diverticulitis -Abdomen/pelvis CT: Mild sigmoid diverticulitis with adjacent small extremities with clear liquids. No significant free fluid and free air in the abdomen this appears to be contained. -Involving the sigmoid with small contained abscess -Can be treated conservatively for now, if patient worsens, may need surgical drainage -IV antibiotics with Zosyn -Surgery consult requested, will await input -IV fluids -Pain control -N.p.o. Urinary tract infection -leukocytosis (11.7K), Urine WBC 182. -zosyn IV for coverage. -follow culture data History of RCC s/p rt nephrectomy - noted Obesity - BMI 30 - Counseled patient on the importance of weight loss, incorporating exercise, and dietary changes (lean meats, fresh fruits and vegetables, and water intake). Patient expresses understanding. - Time: +15 min Hospital course: 01/20: Discussed case with Dr. Handley. 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 Some concern of gas in bladder which raises concern for colovescular fistula approximating diverticular abscess. Recommended placement of metcalf for decompression of bladder and CTAP in AM which I agreed with. Will be NPO overnight possible drainage of abscess. 01/21: Repeat CT scan reveals mild improvement in the sigmoid diverticulitis and small peridiverticular abscess since study on 01/19. Patient apparently refused Metcalf for decompression of bladder. Await Dr. Handley's recommendations History Interval history: No new issues overnight Hospitalist Physical - Constitutional Vitals: Temp Pulse Resp BP Pulse Ox 98.0 F 39 L 18 155/79 98 01/21/22 04:37 01/21/22 04:37 01/21/22 04:37 01/21/22 04:37 01/21/22 08:04 General appearance: Present: no acute distress, well-nourished - EENT Eyes: Present: PERRL, EOM intact ENT: hearing intact, clear oral mucosa, dentition normal - Neck Neck: Present: supple, normal ROM - Respiratory Respiratory effort: normal Respiratory: bilateral: CTA - Cardiovascular Rhythm: regular Heart Sounds: Present: S1 & S2. Absent: gallop, rub - Extremities Extremities: no ischemia, No edema, Full ROM - Abdominal General gastrointestinal: soft, non-tender, non-distended, normal bowel sounds - Integumentary Integumentary: Present: clear, warm, dry - Neurologic Neurologic: CNII-XII intact, moves all extremities Results - Labs CBC & Chem 7: 01/21/22 05:34 01/21/22 05:34 Labs: Laboratory Last Values WBC 7.4 K/mm3 (4.5-11.0) 01/21/22 05:34 RBC 5.60 M/mm3 (3.65-5.03) H 01/21/22 05:34 Hgb 12.4 gm/dl (11.8-15.2) 01/21/22 05:34 Hct 38.8 % (35.5-45.6) 01/21/22 05:34 MCV 69 fl (84-94) L 01/21/22 05:34 MCH 22 pg (28-32) L 01/21/22 05:34 MCHC 32 % (32-34) 01/21/22 05:34 RDW 15.7 % (13.2-15.2) H 01/21/22 05:34 Plt Count 250 K/mm3 (140-440) 01/21/22 05:34 Lymph % (Auto) 25.4 % (13.4-35.0) 01/21/22 05:34 [place] % (Auto) 7.9 % (0.0-7.3) H 01/21/22 05:34 Eos % (Auto) 2.2 % (0.0-4.3) 01/21/22 05:34 Baso % (Auto) 0.4 % (0.0-1.8) 01/21/22 05:34 Lymph # (Auto) 1.9 K/mm3 (1.2-5.4) 01/21/22 05:34 [place] # (Auto) 0.6 K/mm3 (0.0-0.8) 01/21/22 05:34 Eos # (Auto) 0.2 K/mm3 (0.0-0.4) 01/21/22 05:34 Baso # (Auto) 0.0 K/mm3 (0.0-0.1) 01/21/22 05:34 Seg Neutrophils % 64.1 % (40.0-70.0) 01/21/22 05:34 Seg Neutrophils # 4.7 K/mm3 (1.8-7.7) 01/21/22 05:34 Sodium 138 mmol/L (137-145) 01/21/22 05:34 Potassium 3.9 mmol/L (3.6-5.0) 01/21/22 05:34 Chloride 103.3 mmol/L (98-107) 01/21/22 05:34 Carbon Dioxide 23 mmol/L (22-30) 01/21/22 05:34 Anion Gap 16 mmol/L 01/21/22 05:34 BUN 9 mg/dL (9-20) 01/21/22 05:34 Creatinine 0.9 mg/dL (0.8-1.3) 01/21/22 05:34 Estimated GFR > 60 ml/min 01/21/22 05:34 BUN/Creatinine Ratio 10 % 01/21/22 05:34 Glucose 62 mg/dL (75-100) L 01/21/22 05:34 Calcium 8.6 mg/dL (8.4-10.2) 01/21/22 05:34 Total Bilirubin 0.60 mg/dL (0.1-1.2) 01/20/22 04:38 AST 12 units/L (5-40) 01/20/22 04:38 ALT 10 units/L (7-56) 01/20/22 04:38 Alkaline Phosphatase 56 units/L (35-129) 01/20/22 04:38 Total Protein 6.8 g/dL (6.3-8.2) 01/20/22 04:38 Albumin 3.5 g/dL (3.9-5) L 01/20/22 04:38 Albumin/Globulin Ratio 1.1 % 01/20/22 04:38 Lipase 102 units/L (13-60) H 01/19/22 12:36 Urine Color Yellow (Yellow) 01/19/22 Unknown Urine Turbidity Slightly-cloudy (Clear) 01/19/22 Unknown Urine pH 5.0 (5.0-7.0) 01/19/22 Unknown Ur Specific [place] 1.029 (1.003-1.030) 01/19/22 Unknown Urine Protein 100 mg/dl mg/dL (Negative) 01/19/22 Unknown Urine Glucose (UA) Neg mg/dL (Negative) 01/19/22 Unknown Urine Ketones Neg mg/dL (Negative) 01/19/22 Unknown Urine Blood Mod (Negative) 01/19/22 Unknown Urine Nitrite Neg (Negative) 01/19/22 Unknown Urine Bilirubin Neg (Negative) 01/19/22 Unknown Urine Urobilinogen 4.0 mg/dL (<2.0) 01/19/22 Unknown Ur Leukocyte Esterase Lg (Negative) 01/19/22 Unknown Urine WBC (Auto) > 182.0 /HPF (0.0-6.0) H 01/19/22 Unknown Urine RBC (Auto) 21.0 /HPF (0.0-6.0) 01/19/22 Unknown Urine Mucus 3+ /HPF 01/19/22 Unknown Urine Yeast (Budding) 1+ /HPF 01/19/22 Unknown Microbiology: Microbiology 01/20/22 Unknown Urine,Clean Catch Urine Culture - Preliminary NO GROWTH AFTER 24 HOURS Metcalf/IV: Voiding Method Toilet Active Medications - Current Medications Current Medications: Generic Name Dose Route Start Last Admin Trade Name Freq PRN Reason Stop Dose Admin Acetaminophen 650 mg 01/19/22 19:54 Acetaminophen 325 Mg Tab PO Q4H PRN Pain MILD(1-3)/Fever >100.5/CHAN Famotidine 20 mg 01/19/22 22:00 01/21/22 09:38 Famotidine 20 Mg/2 Ml Inj IV 20 mg BID JIM Administration Heparin Sodium (Porcine) 5,000 unit 01/19/22 22:00 01/20/22 21:06 Heparin 5,000 Unit/1 Ml Vial SUB-Q Not Given Q12HR JIM Hydromorphone HCl 1 mg 01/19/22 19:54 Hydromorphone 0.5 Mg/0.5 Ml Inj IV Q3H PRN Pain , Severe (7-10) Sodium Chloride 1,000 mls @ 75 mls/hr 01/19/22 20:00 01/21/22 01:26 Nacl 0.9% 1000 Ml IV 75 mls/hr DIRECT JIM Administration Piperacillin Sod/Tazobactam Sod 4.5 gm in 100 mls @ 200 mls/hr 01/19/22 22:00 01/21/22 05:20 Zosyn/Ns 4.5gm/100ml IV 200 mls/hr Q8HR JIM Administration Protocol Morphine Sulfate 2 mg 01/19/22 19:54 01/20/22 20:54 Morphine 2 Mg/1 Ml Inj IV 2 mg Q4H PRN Administration Pain, Moderate (4-6) Ondansetron HCl 4 mg 01/19/22 19:54 01/19/22 22:10 Ondansetron 4 Mg/2 Ml Inj IV 4 mg Q8H PRN Administration Nausea And Vomiting Sodium Chloride 10 ml 01/19/22 22:00 01/21/22 09:38 Sodium Chloride 0.9% 10 Ml Flush Syringe IV 10 ml BID JIM Administration Sodium Chloride 10 ml 01/19/22 19:54 Sodium Chloride 0.9% 10 Ml Flush Syringe IV PRN PRN LINE FLUSH
[2022-01-21] MEDS: HEPARIN 5,000 UNIT/1 ML VIAL SUB-Q SCH (11:53)
[2022-01-21] MEDS ORDERED: fentaNYL 100 MCG/2 ML INJ IV SCH (12:00)
[2022-01-21] MEDS ORDERED: MIDAZOLAM 2 MG/2 ML INJ IV SCH (12:00)
[2022-01-21] MEDS ORDERED: LIDOCAINE 2%/EPINEPHRINE 1:200,000 VIAL (20 ML) INFILTRATI ONE (12:09)
--- NOTE | 2022-01-21 12:27 | Progress Note ---
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 Patient has urination and feels gas emptying through his penis when he urinates. He has frequent urinary tract infections. He sees blood and sometimes stool like debris in his urine. CT scan demonstrates a urachus with a urachal cystic lesion and inflammatory changes of the colon abutting the bladder dome compatible with a colovesicular fistula. No clear drainable collection is noted. Patient will need to have follow-up with urology and general surgery for management of the colovesicular fistula. Culture data can be obtained from patient's urine. If urine culture negative, very likely aspiration would be negative as well. Objective - Constitutional Vitals: Vital Signs - 12hr 01/21/22 01/21/22 04:37 08:04 Temperature 98.0 F Pulse Rate 39 L Respiratory 18 Rate Blood Pressure 155/79 O2 Sat by Pulse 96 98 Oximetry - Labs CBC & Chem 7: 01/21/22 05:34 01/21/22 05:34 Labs: Abnormal lab results 01/21/22 01/21/22 Range/Units 05:34 05:34 RBC 5.60 H (3.65-5.03) M/mm3 MCV 69 L (84-94) fl MCH 22 L (28-32) pg RDW 15.7 H (13.2-15.2) % [place] % (Auto) 7.9 H (0.0-7.3) % Glucose 62 L (75-100) mg/dL Medications & Allergies - Medications Allergies/Adverse Reactions: Allergies shellfish derived Allergy (Verified 01/19/22 12:18) Rash Home Medications: Home Medications Medication Instructions Recorded Confirmed Last Taken Type No Known Home Medications [No 01/20/22 01/20/22 Unknown History Reported Home Medications] Active Medications: Generic Name Dose Route Start Last Admin Trade Name Freq PRN Reason Stop Dose Admin Acetaminophen 650 mg 01/19/22 19:54 Acetaminophen 325 Mg Tab PO Q4H PRN Pain MILD(1-3)/Fever >100.5/CHAN Famotidine 20 mg 01/19/22 22:00 01/21/22 09:38 Famotidine 20 Mg/2 Ml Inj IV 20 mg BID JIM Administration Fentanyl 100 mcg 01/21/22 12:00 Fentanyl 100 Mcg/2 Ml Inj IV 01/21/22 15:00 ONCE@1200 JIM Heparin Sodium (Porcine) 5,000 unit 01/19/22 22:00 01/21/22 11:53 Heparin 5,000 Unit/1 Ml Vial SUB-Q Not Given Q12HR [facility] Hydromorphone HCl 1 mg 01/19/22 19:54 Hydromorphone 0.5 Mg/0.5 Ml Inj IV Q3H PRN Pain , Severe (7-10) Sodium Chloride 1,000 mls @ 75 mls/hr 01/19/22 20:00 01/21/22 01:26 Nacl 0.9% 1000 Ml IV 75 mls/hr DIRECT JIM Administration Piperacillin Sod/Tazobactam Sod 4.5 gm in 100 mls @ 200 mls/hr 01/19/22 22:00 01/21/22 05:20 Zosyn/Ns 4.5gm/100ml IV 200 mls/hr Q8HR JIM Administration Protocol Midazolam HCl 2 mg 01/21/22 12:00 Midazolam 2 Mg/2 Ml Inj IV 01/21/22 15:00 ONCE@1200 JIM Morphine Sulfate 2 mg 01/19/22 19:54 01/20/22 20:54 Morphine 2 Mg/1 Ml Inj IV 2 mg Q4H PRN Administration Pain, Moderate (4-6) Ondansetron HCl 4 mg 01/19/22 19:54 01/19/22 22:10 Ondansetron 4 Mg/2 Ml Inj IV 4 mg Q8H PRN Administration Nausea And Vomiting Sodium Chloride 10 ml 01/19/22 22:00 01/21/22 09:38 Sodium Chloride 0.9% 10 Ml Flush Syringe IV 10 ml BID JIM Administration Sodium Chloride 10 ml 01/19/22 19:54 Sodium Chloride 0.9% 10 Ml Flush Syringe IV PRN PRN LINE FLUSH
--- NOTE | 2022-01-21 13:41 | Progress Note ---
Assessment and Plan - Patient Problems (1) Diverticulitis Current Visit: Yes Status: Acute Plan to address problem: 1) Pt can be discharged on antibiotics based on his urine C&S. If no growth, would discharge on Levaquin, 500 mg po daily X 7 days. Pt can f/u with me as an outpt for definitive treatment of his colovesical fistula. Subjective Date of service: 01/21/22 Patient Reports: Positive: no new complaints, feels better, pain is less (See repeat CT scan and Dr. Handley's note. Pt states colovesicle fistula has been present for some time.) Objective Vital Signs - 12hr 01/21/22 01/21/22 01/21/22 04:37 08:04 11:14 Temperature 98.0 F 98.1 F Pulse Rate 39 L 47 L Respiratory 18 16 Rate Blood Pressure 155/79 139/79 O2 Sat by Pulse 96 98 100 Oximetry - Abdomen PM_46_[id number] 4, PM_46_EXABD1 6, PM_46_EXABD1 8 Hernia: none - Labs 01/21/22 05:34 01/21/22 05:34 Diabetes panel 01/21/22 Range/Units 05:34 Sodium 138 (137-145) mmol/L Potassium 3.9 (3.6-5.0) mmol/L Chloride 103.3 (98-107) mmol/L Carbon Dioxide 23 (22-30) mmol/L BUN 9 (9-20) mg/dL Creatinine 0.9 (0.8-1.3) mg/dL Glucose 62 L (75-100) mg/dL Calcium 8.6 (8.4-10.2) mg/dL Calcium panel 01/21/22 Range/Units 05:34 Calcium 8.6 (8.4-10.2) mg/dL Pituitary panel 01/21/22 Range/Units 05:34 Sodium 138 (137-145) mmol/L Potassium 3.9 (3.6-5.0) mmol/L Chloride 103.3 (98-107) mmol/L Carbon Dioxide 23 (22-30) mmol/L BUN 9 (9-20) mg/dL Creatinine 0.9 (0.8-1.3) mg/dL Glucose 62 L (75-100) mg/dL Calcium 8.6 (8.4-10.2) mg/dL Adrenal panel 01/21/22 Range/Units 05:34 Sodium 138 (137-145) mmol/L Potassium 3.9 (3.6-5.0) mmol/L Chloride 103.3 (98-107) mmol/L Carbon Dioxide 23 (22-30) mmol/L BUN 9 (9-20) mg/dL Creatinine 0.9 (0.8-1.3) mg/dL Glucose 62 L (75-100) mg/dL Calcium 8.6 (8.4-10.2) mg/dL - Imaging Additional Studies: Urine culture NG thus far.
[2022-01-21 14:52] LABS: Bilirubin,Urine NEG (Negative); Blood,Urine SM (Negative); Color,Urine Yellow (Yellow); Mucus,Urine FEW /HPF
[2022-01-21 14:53] LABS: WBC,Urine > 182.0 /HPF (0.0-6.0)
[2022-01-21 17:38] VITALS: BP 154/93
== END 2022-01-21 17:45 | disposition home or self-care (01) | DRG 872 ==
LOC: ED 12:06 → 3A 19:54
PROVIDERS: ADMIT Internal Medicine; ATTEND Hospitalist
DX: A41.89 Other specified sepsis (principal); K57.92 Diverticulitis of intestine, part unspecified, without perforation or abscess without bleeding; N30.01 Acute cystitis with hematuria; E66.9 Obesity, unspecified
CPT/HCPCS: 36415; 74177; 80048; 80053; 81001; 83690; 85025; 87086; G0378; J3490; J0696; J1644; J2270; J2405; J2543; J7030; Q9967